=== PATIENT | male | born 1960 | race African-American/Black ===

== ENCOUNTER 2018-12-26 13:09 | Emergency (ER) | payer OTHER ==
[~2018-12-26] VITALS: Ht 180.3 cm; Wt 108.9 kg
[2018-12-26 13:09] VITALS: BP 202/131
[2018-12-26] MEDS ORDERED: ACETAMINOPHEN 325 MG TABLET PO ONE (14:00)
[2018-12-26] MEDS ORDERED: ACETAMINOPHEN ES 500 MG TABLET ONE (14:21)
== END 2018-12-26 15:25 | disposition home or self-care (01) ==
LOC: ER 13:15 → EDBD 13:15 → ER 15:25
DX: S93.491A Sprain of other ligament of right ankle, initial encounter (principal); I10 Essential (primary) hypertension; W01.0XXA Fall on same level from slipping, tripping and stumbling without subsequent striking against object, initial encounter; Y93.01 Activity, walking, marching and hiking; Y92.89 Other specified places as the place of occurrence of the external cause; Y99.8 Other external cause status
CPT/HCPCS: 73610-TC

== ENCOUNTER 2019-09-30 12:26 | Emergency (ER) | payer OTHER ==
[~2019-09-30] VITALS: Ht 172.7 cm; Wt 106.8 kg
--- NOTE | 2019-09-30 12:30 | NUR ---
BIB ra as CODE STROKE, c/o weakness to R arm while sitting on couch. PATIENT IMMEDIATELY TAKEN TO CT.PATIENT A/OX4, ABLE TO ANSWER QUESTIONS. DIAPHORETIC, C/O MILD CHEST PAIN.
--- NOTE | 2019-09-30 12:33 | NUR ---
PATIENT TAKEN TO CT. IV LINE PRESENT ON LEFT AC G18.
[2019-09-30] MEDS ORDERED: IOHEXOL-350 100 ML VIAL IV ONE (12:34)
[2019-09-30 12:39] LABS: BASOPHILS # (AUTO) 0.2 /CMM (0.0-0.2); BASOPHILS % (AUTO) 2.9 % (0.0-2.0); EOSINOPHILS % (AUTO) 2.9 % (0.0-6.0); HEMATOCRIT 44 % (39-51); HEMOGLOBIN 14.7 g/dL (13.5-17.5); LYMPHOCYTES # (AUTO) 3.7 /CMM (0.8-4.8); LYMPHOCYTES % (AUTO) 46.7 % (20.0-44.0); MEAN CORPUSCULAR HGB CONC 34 g/dl (31.0-36.0); MEAN CORPUSCULAR VOLUME 86 fL (80-96); MONOCYTES # (AUTO) 0.6 /CMM (0.1-1.30); MONOCYTES % (AUTO) 7.6 % (2.0-12.0); NEUTROPHILS # (AUTO) 3.1 /CMM (1.8-8.9); NEUTROPHILS % (AUTO) 39.9 % (43.0-81.0); PLATELET COUNT (AUTO) 186 /CMM (150-450); RED BLOOD CELL COUNT(AUTO) 5.07 MIL/uL (4.5-6.0); WHITE BLOOD COUNT (AUTO) 7.8 K/uL (4.3-11.0)
--- NOTE | 2019-09-30 12:44 | NUR ---
PATIENT CAME BACK FROM [place]. A/[facility].
--- NOTE | 2019-09-30 12:45 | NUR ---
TELENEURO ONLINE FOR ASSESSMENT
[2019-09-30 12:48] LABS: CALCIUM, SERUM 9.4 mg/dL (8.5-10.1); CREATININE 1.8 mg/dL (0.6-1.3)
[2019-09-30 12:50] LABS: POTASSIUM 2.4 mmol/L (3.5-5.1)
--- NOTE | 2019-09-30 12:50 | NUR ---
NIHSS SCORE IS 2
[2019-09-30] MEDS ORDERED: ATEN100T PO (12:54)
[2019-09-30] MEDS ORDERED: AMLO10TA7 PO (12:54)
--- NOTE | 2019-09-30 12:56 | NUR ---
CALLED DR GIBBONS ANSWERING SERVICE.
[2019-09-30] MEDS ORDERED: POTASSIUM CL. PREMIX PERIPHER. 50 ML IV SCH (13:00)
--- NOTE | 2019-09-30 13:02 | NUR ---
Dr. Theresa reece for emergent consult
[2019-09-30] MEDS ORDERED: POTASSIUM CL. PREMIX PERIPHER. 50 ML ONE (13:05)
--- NOTE | 2019-09-30 13:10 | NUR ---
DR AMOR AT BEDSIDE FOR EVAL.
--- NOTE | 2019-09-30 13:19 | NUR ---
CALLED [facility] FOR TRANSPORT. NO ALS AMBULANCE AVAILABLE.
--- NOTE | 2019-09-30 13:19 | NUR ---
CALLED [facility] FOR ALSO CODE 3 TRANSPORT TO [place]. NO UNITS AVAILABLE.
--- NOTE | 2019-09-30 13:19 | NUR ---
Presented case to [facility] for higher level of care transport
--- NOTE | 2019-09-30 13:20 | NUR ---
CALLED [facility] FOR CODE 3 TRANSPORT. NO ALS AMBULANCE AVAILABLE.
--- NOTE | 2019-09-30 13:20 | NUR ---
CALLED [facility] FOR CODE 3 ALS TRANSPORT. NO ALS AVAILABLE.
--- NOTE | 2019-09-30 13:22 | NUR ---
[facility] H[facility]HER LEVEL OF CARE TRANSPORT.
[2019-09-30] MEDS ORDERED: MORPHINE SULFATE INJ 2 MG/ML DISP.SYRIN ONE (13:24)
[2019-09-30] MEDS ORDERED: NTG 50 MG/D5W250 ML BOTTL 0 ML IV ONE (13:26)
[2019-09-30 13:30] VITALS: BP 150/70
[2019-09-30] MEDS ORDERED: MORPHINE SULFATE INJ 2 MG/ML DISP.SYRIN IV ONE (13:30)
[2019-09-30] MEDS ORDERED: NTG 50 MG/D5W250 ML BOTTL 50 MG/250 ML BTL IV ONE (13:30)
--- NOTE | 2019-09-30 13:41 | NUR ---
REPORT GIVEN TO [facility] RA 99 WITH NORMAL SALINE IV INFUSING. PATIENT A/OX4, BREATHING EVEN AND UNLABORED, STILL C/O MILD CHEST PAIN. FRIEND DILLON WAS AT BEDSIDE. PATIENT LEFT THE HOSPITAL TO [facility] FOR SURGERY WITH ACCEPTING SURGEON DR. AMOR.
== END 2019-09-30 13:46 | disposition short-term general hospital (02) ==
LOC: ER 12:27
DX: I71.00 Dissection of unspecified site of aorta (principal); E87.6 Hypokalemia; I10 Essential (primary) hypertension; Z79.899 Other long term (current) drug therapy
CPT/HCPCS: 36415; 70450; 70496; 70498; 71045; 80048; 80061; 82962; 83735; 84484; 85025; 85730; 93005; 96365; 96375; 99291; J2270; J3480; J7030; Q9967; J3490